=== PATIENT | female | born 1960 | race Caucasian/White ===

== ENCOUNTER → 2021-01-12 | Outpatient (CLI) | payer BC ==
[2014-02-21 10:14] VITALS: BP 124/64
[~2021-01-12] MED LIST: BUPR1PAT7 TD; BUSP15TA PO; CHOL100017 PO; CLON1TAB PO; CLON2TAB PO; FERR325T58 PO; HYDR-2769 PO; LAMO200T3 PO; OXCA600T3 PO; PREG50CA91 PO; TIZA4TAB2 PO; VENL150C PO
--- NOTE | 2021-01-12 15:50 | RAD ---
EXAM: Bilateral digital screening mammogram with tomosynthesis. HISTORY: 60-year-old female presents for screening mammography. TECHNIQUE: Full-field digital craniocaudal and mediolateral oblique 2D and 3D tomosynthesis images of both breasts are obtained for evaluation. Computer aided detection was applied. COMPARISON: There has been greater than 10 years since the prior mammogram. This exam serves as a new baseline mammogram. BREAST PARENCHYMAL DENSITY: Level C - Heterogeneously dense. FINDINGS: There is nodular asymmetry within the 8:30 to 9:00 position of the right breast at mid dept h. There are additional areas of asymmetry and nodular debris which due to persist between projection s. There is no suspicious calcification or architectural distortion. IMPRESSION: BI-RADS Category 0: Incomplete. Additional imaging needed. RECOMMENDATION: Further evaluation with a full field true lateral view and spot compression views of the right breast to assess nodularity at the 8:30 to 9:00 position is recommended. Sonographic imagin g can be performed if deemed indicated based on additional mammographic findings. If your mammogram demonstrates that you have dense breast tissue, which could hide abnormalities, and if you have other risk factors for breast cancer that have been identified, you might benefit from s upplemental screening tests that may be suggested by your ordering physician. Dense breast tissue, i n and of itself, is a relatively common condition. This information is not provided to cause undue c oncern, but rather to raise your awareness and to promote discussion with your physician regarding th e presence of other risk factors, in addition to dense breast tissue. A report of your mammography re sults will be sent to you and your physician. You should contact your physician if you have any ques tions or concerns regarding this report. Mammography is a sensitive method for finding small breast cancers, but it does not detect them all a nd is not a substitute for careful clinical examination. A negative mammogram does not negate a clin ically suspicious finding and should not result in delay in biopsying a clinically suspicious abnorma lity. PQRS compliance statement - Patient information was entered into a reminder system with a target due date for the next mammogram. "Our facility is accredited by the [employer] Mammography [employer]." Electronically signed by: Yanira Balderas MD (01/12/2021 3:48 PM) [id number]
== END ==
LOC: MAMMO 13:16
PROVIDERS: ATTEND Family Medicine
DX: Z12.31 Encounter for screening mammogram for malignant neoplasm of breast (principal); N64.89 Other specified disorders of breast
CPT/HCPCS: 77063; 77067

== ENCOUNTER → 2021-02-03 | Outpatient (CLI) | payer BC ==
[2014-02-21 10:14] VITALS: BP 124/64
--- NOTE | 2021-02-03 11:45 | RAD ---
EXAMINATION: US BREAST RT, MG DIAGNOSTICUNILAT MAMMO History: Call back from screening mammogram for nodular asymmetry in the right breast. Comparison: Screening mammogram 01/12/2021. Technique: Spot compression CC and MLO views and full field MLO view of the right breast obtained. Patel bsequently, focused ultrasound of the outer right breast in area of concern was performed.. Findings: Mammogram: Breast Tissue Density C : The breasts are heterogeneously dense, which may obscure small masses. The nodular asymmetry in the right breast at 9:00 3 cm the nipple is less conspicuous but does not en tirely resolved on spot compression. Ultrasound: Ultrasound of the right breast from 8:00 to 10:00 demonstrates dense fibroglandular tissue. There is no cyst or mass to correspond with the mammographic abnormality at 9:00 3 cm from the nipple. IMPRESSION: No mammographic evidence of malignancy. Findings on screening mammogram likely correlate with dense g landular tissue. Recommend routine screening. BI-RADS category 1: Negative. The images were reviewed with computer aided detection. Patient information is entered into the reminder system with a target due date for the next screening mammogram. Mammography is the most sensitive method for finding small breast cancers, but it does not detect the m all and is not a substitute for careful clinical examination. A negative mammogram does not negate a clinically suspicious finding and should not result in delay in biopsying a clinically suspicious a bnormality. "Our facility is accredited by the [employer] Mammography [employer]." Electronically signed by: Michelle Barr MD (02/03/2021 11:43 AM) [id number]
== END ==
LOC: MAMMO 10:28
PROVIDERS: ATTEND Family Medicine
DX: R92.2 Inconclusive mammogram (principal)
CPT/HCPCS: 76641; 77065